=== PATIENT | female | born 1940 | race Caucasian/White ===

== ENCOUNTER 2019-05-03 12:15 | Emergency (ER) | payer MEDICARE ==
--- NOTE | 2019-05-03 12:24 | UC ---
Dizzy HPI HPI Summary: 78 yo female presents, accompanied by her daughter Saba, with dizziness. She uses a walking stick a baseline. Pt tells me that in late february she fell and landed on her face - she did seek medical treatment and was told she had a concussion. Since that time she has been slightly unsteady on her feet even with her walking stick. On 04/29 she developed a headache, ringing and pain in her right ear, and became significantly more dizzy where she needed to hold onto objects and use her walking stick. Since that time her headache has improved, but her dizziness, ear pain, and tinnitus have remained. She is walking better with her walking stick, but today needed the help of a wheelchair to enter the building. She denies vision changes, weakness, numbness , tingling, SOB, chest pain, abdominal pain, n/v. She has not fallen since previously mentions fall in February. She denies any PMHx. Does not smoke. No hx of CVA or KS. - History Of Current Complaint Stated Complaint: RT EAR RINGING,LOSS OF BALANCE,DIZZY Time Seen by Provider: 05/03/19 12:24 Hx Obtained From: Patient Onset/Duration: Sudden Onset Severity Initially: Moderate Severity Currently: Mild Pain Intensity: 5 Pain Scale Used: 0-10 Numeric - Allergies/Home Medications Allergies/Adverse Reactions: Allergies Allergy/AdvReac Type Severity Reaction Status Date / Time Penicillins Allergy Eyes Verified 05/03/19 12:22 Itchy/Swollen/Red/Watery Home Medications: Home Medications Devil's Claw Extract [Devil's Claw] 1 dose MC BID 05/03/19 [History Confirmed ] PMH/Surg Hx/FS Hx/Imm Hx - Additional Past Medical History Additional PMH: None - Surgical History Surgical History: Yes Surgery Procedure, Year, and Place: - Family History Known Family History: Positive: Other - mother of ovarian cancer - Social History Occupation: Retired Lives: Alone Alcohol Use: None Substance Use Type: None Smoking Status (MU): Never Smoked Tobacco Review of Systems All Other Systems Reviewed And Are Negative: No Constitutional: Positive: Negative Skin: Positive: Negative Eyes: Positive: Negative ENT: Positive: Ear Ache Respiratory: Positive: Negative Cardiovascular: Positive: Negative Gastrointestinal: Positive: Negative Neurovascular: Positive: Negative Neurological: Positive: Other - Dizzy Psychological: Positive: Negative Physical Exam - Summary Physical Exam Summary: GENERAL: NAD. WDWN. No pain distress. SKIN: No rashes, sores, ulcers, masses, lesions. HEENT: Head: AT/NC. No raccoon eyes or battles sign. Eyes: PERRLA. EOM intact. Conjunctiva clear without inflammation or discharge. Ears: Hearing grossly normal. TMs intact, no bulging, erythema, or edema. No hemotympanum Nose: Nasal mucosa pink and moist. NTTP maxillary and frontal sinus. Throat: Posterior oropharynx without exudates, erythema, or tonsillar enlargement. Uvula midline. NECK: Supple. FROM CHEST: CTAB. No r/r/w. No accessory muscle use. Breathing comfortably and in no distress. CV: ?PVC. Pulses intact. Brisk cap refill. MSK: FROM in B/L UEs and LEs with symmetric strength. Pain in right neck with flexion of shoulder. TTP about right upper trapezius. NEURO: A&Ox3. 3 word recall, remote, recent memory, ability to follow 2-step directions, and attention intact. CN: II: Peripheral alamo intact. Vision normal. III, IV, : EOMI. No nystagmus. PERRLA. V: Sensations intact and symmetric. Opens mouth and clenches teeth. VII: No facial asymmetry. Forehead wrinkles. Grins, shuts eyes, frowns, puffs cheeks. VIII: Hearing intact to finger rub. IX, X: Swallows and coughs. Uvula midline. XI: Shrugs shoulders. Turns head against resistance. XII: No tongue deviation [id number] are intact. Normal speech. No facial drooping. PSYCH: Age appropriate behavior. Triage Information Reviewed: Yes Vital Signs: Vital Signs: Temp Pulse Resp BP Pulse Ox 97.7 F 79 20 150/70 99 05/03/19 12:24 05/03/19 12:24 05/03/19 12:24 05/03/19 12:24 05/03/19 12:24 Vital Signs Reviewed: Yes National Institutes Of Health - NIH Scale Level of Consciousness: Alert/Keenly Responsive Ask Patient the Month and His/Her Age: Both Correct Ask Pt to Open/Close Eyes and Enroute Controller/Release Non-Paretic Hand: Both Correctly Best Gaze (Only Horizontal Eye Movement): Normal Visual Field Testing: No Visual Loss Facial Paresis-Pt to Smile & Close Eyes or Grimace Symmetry: Normal/Symmetrical Motor Function - Right Arm: No Drift-Holds 10 Seconds Motor Function - Left Arm: No Drift-Holds 10 Seconds Motor Function - Right Leg: No Drift-Holds 10 Seconds Motor Function - Left Leg: No Drift-Holds 10 Seconds Limb Ataxia-Must be out of Proportion to Weakness Present: Absent Sensory (Use Pinprick to Test Arms/Legs/Trunk/Face): Normal Best Language (Describe Picture, Name Items): No Aphasia Dysarthria (Read Several Words): Normal Extinction and Inattention: No Abnormality Total Score: 0 Dizzy Course/Dx - Course Course Of Treatment: NIH 0. GCS 15. EKG sinus tach with APCs 101bpm. No STEMI as read by Dr. Price. Given her remote hx of head injury and more recent hx of headache, dizziness, and tinnitus with balance instability - her symptoms are most concerning for subacute CVA at this time. She denies PMHx, no fam hx of CVA, and does not smoke -- appears to have no risk factors at this time other than age. I discussed transfer to the ED via ambulance, but pt declined and wishes for her daughter with her to drive her. - Differential Dx/Diagnosis Provider Diagnosis: Tinnitus, Dizziness, Headache Discharge ED - Sign-Out/Discharge Documenting (check all that apply): Patient Departure All imaging exams completed and their final reports reviewed: No Studies - Discharge Plan Condition: Stable Disposition: HOME-RECOMMEND TO ED Referrals: Non Staff,Doctor [Primary Care Provider] - Additional Instructions: Your ear appeared healthy today. Given your recent head injury and worsening symptoms - the provider that evaluated you today is most concerned that you have an intracranial (brain) pathology Please have your daughter drive you to the ER for further evaluation of your headache, dizziness, and ear ringing. - Billing Disposition and Condition Condition: STABLE Disposition: Home-Recommend to ED
[2019-05-03 12:41] VITALS: BP 150/70
== END 2019-05-03 13:05 | disposition home health service (06) ==
LOC: UCCORT 12:15
DX: H93.11 Tinnitus, right ear (principal); R51 Headache; Z88.0 Allergy status to penicillin
CPT/HCPCS: 93005; 99212; G0463